=== PATIENT | male | born 1960 | race Two or more races ===

== ENCOUNTER 2025-08-05 15:16 | Emergency (ER) | payer OTHER ==
[~2025-08-05] VITALS: Ht 170.2 cm; Wt 73.5 kg
[2025-08-05] MEDS ORDERED: PLAVIX75 MG PO (16:36)
[2025-08-05] MEDS ORDERED: ATORVASTATIN CA20 MG PO (16:36)
[2025-08-05] MEDS ORDERED: LOSARTAN POTASS25 MG PO (16:36)
[2025-08-05 17:31] LABS: BASO % 0.0 % (0.1-1.2); EOS # 0.00 (0.04-0.54); EOS % 0.0 % (0.7-7.0); LYMPH # 0.66 (1.18-3.74); LYMPH % 40.0 % (19.3-53.1); MEAN PLATELET VOLUME 10.90 fl (9.4-12.4); MONO # 0.12 (0.24-0.82); MONO % 7.3 % (4.7-12.5); NEUT # 0.86 (1.56-6.13); NEUT % 52.1 % (34.0-71.1); RED CELL DISTRIBUTION WIDTH 18.3 % (11.6-14.4)
[2025-08-05 17:56] LABS: ERYTHROCYTE SEDIMENTATION RATE 74 mm/hr (0-20)
[2025-08-05 18:02] LABS: URINE APPEARANCE Clear; URINE BILIRRUBIN Negative (NEGATIVE); URINE BLOOD Moderate; URINE COLOR Dark Yellow; URINE GLUCOSE Negative (NEGATIVE); URINE KETONE Negative (NEGATIVE); URINE LEUKOCYTE Negative; URINE NITRATE Positive; URINE PROTEIN Negative (NEGATIVE); URINE UROBILINOGEN 0.2 E.U./dl
[2025-08-05 18:03] LABS: URINE BACTERIA 4.7 uL (0.0-1933); URINE EPITHELIAL CELLS 1.5 uL (0.0-38.8); URINE RBC 76.7 uL (0.0-20.8); URINE WBC 2.9 uL (0.0-23.2)
[2025-08-05 18:11] LABS: URINE CAST 0.43 uL (0.0-1.40)
[2025-08-05 18:27] LABS: ALT/SGPT 30.0 U/L (12-78); AST/SGOT 18.0 U/L (15-37); BILIRUBIN TOTAL 0.54 mg/dL (0.3-1.2); BUN CREA RATIO 15.0 (7.0-25.0); CREATININE SERUM 1.04 mg/dL (0.70-1.30); GFR 71.9; GLOBULINA 4.2 G/DL (2.4-3.5); GLUCOSE FASTING 97.0 mg/dL (65-100); OSMOLALITY SERUM 279.0 MOSM/KG (275-295)
[2025-08-05] MEDS ORDERED: METHYLPREDNISOLONE SOD SUCC 125 MG VIAL IM STA (22:41)
[2025-08-05] MEDS ORDERED: CEFTRIAXONE SODIUM 1,000 MG VIAL IM STA (22:41)
[2025-08-05] MEDS ORDERED: CEFTRIAXONE SODIUM 1,000 MG VIAL ONE (22:44)
[2025-08-05] MEDS ORDERED: METHYLPREDNISOLONE SOD SUCC 125 MG VIAL ONE (22:44)
[2025-08-05] MEDS ORDERED: LIDOCAINE HCL 1% 10ML VIAL ONE (22:47)
== END 2025-08-05 23:09 | disposition home or self-care (01) ==
LOC: ER 15:17
PROVIDERS: Physician Assistant Medical
DX: R22.1 Localized swelling, mass and lump, neck (principal); K57.32 Diverticulitis of large intestine without perforation or abscess without bleeding; N20.0 Calculus of kidney; C94.6 Myelodysplastic disease, not elsewhere classified